=== PATIENT | female | born 1995 | race Caucasian/White ===

== ENCOUNTER 2016-12-15 17:54 | Emergency (ER) | payer OTHER ==
[~2016-12-15] VITALS: Wt 70.0 kg
[2016-12-15] MEDS ORDERED: HYDR-906 PO (18:26)
[2016-12-15] MEDS ORDERED: IBUP-1542 PO (18:26)
--- NOTE | 2016-12-15 18:29 | ERD ---
ER Documentation Chief Complaint Date/Time DATE: 12/15/16 TIME: 18:27 Chief Complaint LEFT SIDE SHOULDER PAIN NON TRAUMATIC. NO DEFORMITY NOTED. HPI This is a 21-year-old female complaining of day 4 of pain in her left posterior upper back. She is complaining of pain that is described as sharp and nonradiating between the scapula and spine in the rhomboid area. She said that she was carrying a backpack and then leaning forward and felt pain 30 minutes later. Pain is worse when she moves from a supine to standing position or twisting. No chest pain or shortness of breath no cough. ROS All systems reviewed and are negative except as per history of present illness. Medications Home Meds Active Scripts Hydrocodone/Acetaminophen (Pattison 5-325 Tablet) 1 Each Tablet, 1 TAB PO Q6H Y for PAIN, #7 TAB Prov:HE DILLON DO 12/15/16 Ibuprofen* (Motrin*) 600 Mg Tab, 600 MG PO Q8, #30 TAB Prov:HE DILLON DO 12/15/16 PMhx/Soc Medical and Surgical Hx: pt denies Medical Hx, pt denies Surgical Hx Hx Alcohol Use: No Hx Substance Use: No Hx Tobacco Use: No Smoking Status: Never smoker FmHx Family History: No coronary disease Physical Exam Vitals Vital Signs Date Time Temp Pulse Resp B/P Pulse Ox O2 Delivery O2 Flow Rate FiO2 12/15/16 17:58 98.9 101 21 132/85 98 Physical Exam Const: Well-developed, well-nourished Head: Atraumatic, normocephalic Eyes: Normal Conjunctiva, PERRLA, EOMI, normal sclera, no nystagmus ENT: Normal External Ears, Nose and Mouth, moist mucus membranes. Neck: Full range of motion. No meningismus, no lymphadenopathy. Resp: Clear to auscultation bilaterally, no wheezing, rhonchi, rales Cardio: Regular rate and rhythm, no murmurs, S1 S2 present, pinpoint tenderness at the left rhomboid is 100% reproducible Abd: Soft, non tender x 4, non distended. Normal bowel sounds, no guarding or rebound, no pulsitile abdominal masses or bruits Skin: No petechiae or rashes, no ecchymosis , no maculopapular rash Back: No midline or flank tenderness Ext: No cyanosis, or edema, FROM x 4, normal inspection, neurovascularly intact x 4 Neur: Awake and alert, STR 5/5 x 4, sensation intact x 4, no focal findings, cerebellum intact Psych: Normal Mood and Affect Results 24 hrs Current Medications Medications (Trade) Dose Ordered Sig/Addy Route PRN Reason Start Time Stop Time Status Last Admin Dose Admin Ibuprofen (Motrin) 600 mg ONCE ONCE PO 12/15/16 18:30 12/15/16 18:31 Departure Diagnosis: Primary Impression: Musculoskeletal pain Condition: Stable Patient Instructions: Chest Wall Strain HE DILLON DO Dec 15, 2016 18:29
[2016-12-15] MEDS ORDERED: IBUPROFEN 600 MG TAB PO ONE (18:30)
== END 2016-12-15 19:00 | disposition home or self-care (01) ==
LOC: FTE 17:54
DX: M79.1 Myalgia (principal)
CPT/HCPCS: Z7502; Z7610; 99283

== ENCOUNTER 2017-10-03 16:58 | Emergency (ER) | END 2017-10-03 18:23 | disposition home or self-care (01) ==

== ENCOUNTER 2018-04-03 15:58 | Emergency (ER) | END 2018-04-03 17:50 | disposition home or self-care (01) ==

== ENCOUNTER 2018-06-18 17:31 | Emergency (ER) | END 2018-06-18 18:07 | disposition home or self-care (01) ==

== ENCOUNTER 2018-10-07 11:40 | Emergency (ER) | payer OTHER ==
[~2018-10-07] VITALS: Wt 79.5 kg
[~2018-10-07 11:40] MED LIST: HYDR-4011 PO; IBUP-1542 PO; NITR-58 PO
[2018-10-07 11:42] VITALS: BP 123/74; PULSE 89; RESP 20
[2018-10-07] MEDS ORDERED: ACET500C5 PO (12:32)
--- NOTE | 2018-10-07 12:35 | ERD ---
ER Documentation Chief Complaint Chief Complaint r. earache HPI 23-year-old male presents with right ear discomfort for last week. She has decreased hearing as well. She denies cough, congestion, bleeding or discharge. She has additional complaints of skin lesions on her upper arms for several years since a young age as well as some pain in the left side of the chest reproduced by touching and moving. Denies hemoptysis, syncope, shortness of breath, calf swelling. Denies any history of trauma. ROS All systems reviewed and are negative except as per history of present illness. Medications Home Meds Active Scripts Acetaminophen* (Tylophen*) 500 Mg Capsule, 1 CAP PO Q6H PRN for PAIN AND OR ELEVATED TEMP, #15 CAP Prov:FEROZ TIJERINA MD 10/07/18 Nitrofurantoin Monohyd Macrocr* (Macrobid*) 100 Mg Capsr, 100 MG PO BID for 7 Days, CAP Prov:NICHOLAS LEMONS PA-C 06/18/18 Ibuprofen* (Motrin*) 600 Mg Tab, 600 MG PO Q6, #30 TAB Prov:GLORIA VALDOVINOS PA-C 04/03/18 Nitrofurantoin Monohyd Macrocr* (Macrobid*) 100 Mg Capsr, 100 MG PO BID for 5 Days, CAP Prov:GLORIA VALDOVINOS PA-C 04/03/18 Ibuprofen* (Motrin*) 600 Mg Tab, 600 MG PO Q6, #30 TAB Prov:NICHOLAS LEMONS PA-C 10/03/17 Hydrocodone/Acetaminophen (Cornelius 5-325 Tablet) 1 Each Tablet, 1 TAB PO Q6H PRN for PAIN, #7 TAB Prov:HE DILLON DO 12/15/16 Ibuprofen* (Motrin*) 600 Mg Tab, 600 MG PO Q8, #30 TAB Prov:LERUBI REBOLLEDOSTOLOS A. DO 12/15/16 Allergies Allergies: Coded Allergies: No Known Allergy (Unverified , 04/03/18) PMhx/Soc Medical and Surgical Hx: pt denies Medical Hx, pt denies Surgical Hx Hx Miscellaneous Medical Probl: Yes (UTI) Hx Alcohol Use: No Hx Substance Use: No Hx Tobacco Use: No Smoking Status: Never smoker FmHx Family History: No diabetes, No coronary disease, No other Physical Exam Vitals Vital Signs Date Temp Pulse Resp B/P (MAP) Pulse Ox O2 O2 Flow FiO2 Time Delivery Rate 10/07/18 98.0 89 20 123/74 99 11:42 (90) Physical Exam Const: No acute distress Head: Atraumatic Eyes: Normal Conjunctiva ENT: Normal External Ears, Nose and Mouth. Impacted cerumen right ear. Neck: Full range of motion. No meningismus. Resp: Clear to auscultation bilaterally Cardio: Regular rate and rhythm, no murmurs. Reproducible left costochondral pain. Abd: Soft, non tender, non distended. Normal bowel sounds Skin: No petechiae or rashes. Keratotic papules bilateral upper arms. Back: No midline or flank tenderness Ext: No cyanosis, or edema Neur: Awake and alert Psych: Normal Mood and Affect Procedures/MDM Right ear lavage was performed. TM normal after lavage. Patient presents with improved symptoms after ear lavage. Patient has right ear cerumen without evidence of perforation, additional complications. Her skin lesions are consistent with keratosis pilaris and her chest pain is consistent with costochondritis. Patient does not have any signs or symptoms to suggest cardiac chest pain, distal margin because of presenting complaints. She will discharged home with primary care follow-up, Tylenol, return precautions. The patient was stable with no new complaints during the ER course. Clinically, there is no current evidence to suggest meningitis, sepsis, acute abdomen, pneumonia, stroke, acute coronary syndrome, pulmonary embolism, aortic dissection or any other emergent condition appearing to require further evaluation or hospitalization. Patient counseled regarding my diagnostic impression and care plan. Prior to discharge all questions answered. Pt agrees with treatment plan and understands strict return precautions. Pt is instructed to follow up with primary care provider within 24-48 hours. Precautionary instructions provided including instructions to return to the ER if not improving or for any worsening or changing symptoms or concerns. Departure Diagnosis: Primary Impression: Right ear pain Condition: Stable Patient Instructions: Costochondritis, Ear Wax, Treated Additional Instructions: Recheck for new or worsening symptoms with primary care doctor. Skin condition is called keratosis pilaris. Chest pain likely costochondritis. FEROZ TIJERINA MD Oct 07, 2018 12:35
== END 2018-10-07 12:56 | disposition home or self-care (01) ==
LOC: FTE 11:40
DX: H92.01 Otalgia, right ear (principal); H61.21 Impacted cerumen, right ear; M94.0 Chondrocostal junction syndrome [Tietze]; L85.8 Other specified epidermal thickening
CPT/HCPCS: 69209; Z7502